=== PATIENT | female | born 1950 | race Caucasian/White ===

== ENCOUNTER → 2019-01-19 | Outpatient (CLI) | payer MEDICARE ==
[~2019-01-19] MED LIST: REGADENOSON 0.4 MG/5 ML SYRINGE IV ONE
--- NOTE | 2019-01-19 11:50 | NM ---
EXAMINATION TYPE: NM stress lexiscan cardiolite DATE OF EXAM: 01/19/2019 COMPARISON: NONE HISTORY: Right bundle branch block per order. History of hypertension and asthma and family history o f heart attack presents with chest pain and palpitations and difficulty breathing per patient. TECHNIQUE: After the intravenous administration of 10.23 mCi Tc 99m Sestamibi - Cardiolite resting S PECT images acquired 45 minutes post injection. The patient received 0.4mg Lexiscan, 24.4 mCi Tc 99m Sestamibi - Stress images obtained [address] injection FINDINGS: Review of stress and rest SPECT images demonstrates no distinct perfusion abnormality. Gated analysi s shows normal wall motion with an estimated left ventricular ejection fraction of 63 %. IMPRESSION: No scintigraphic evidence for reversible ischemia.
--- NOTE | 2019-01-19 13:34 | EST ---
EXERCISE STRESS DATE OF SERVICE: 01/19/2019 AGE: 68 SEX: Female HT: 5'4" WT: 130 pounds PROTOCOL: Lexiscan Cardiolite STAGE: DURATION OF EXERCISE: HEART RATE REST: 60 BLOOD PRESSURE REST: 135/84 MAXIMUM HEART RATE ACHIEVED: 100 MAXIMUM BLOOD PRESSURE: 174/87 85% MPHR: 129 100% MPHR: 152 METS: INDICATIONS: CLINICAL INFORMATION: Baseline rhythm is a sinus mechanism, rate of 60, right bundle branch block. Baseline blood pressure 135/84 mmHg. Patient received injection of Lexiscan. Electrocardiograph monitoring revealed no evidence of diagnostic ischemic ST deviation. Cardiolite was injected per protocol. CONCLUSION: 1. Nondiagnostic electrocardiograph stress testing. 2. Nuclear images will be reported separately. MMODL / IJN: [id number] /
== END | disposition home or self-care (01) ==
LOC: RADNMMAIN 08:00
PROVIDERS: ATTEND Family Medicine
DX: I45.19 Other right bundle-branch block (principal)
CPT/HCPCS: 93017; 78452; A9500

== ENCOUNTER → 2019-03-25 | Outpatient (CLI) | payer MEDICARE ==
--- NOTE | 2019-03-25 11:01 | CT ---
EXAMINATION TYPE: CT abdomen pelvis wo con DATE OF EXAM: 03/25/2019 COMPARISON: None HISTORY: Abdominal pelvic pain CT DLP: 593 mGycm Automated exposure control for dose reduction was used. TECHNIQUE: Helical acquisition of images was performed from the lung bases through the pelvis. Oral contrast was used only. Therefore there is limitation in evaluation of the solid viscera. FINDINGS: LUNG BASES: No significant abnormality is appreciated. LIVER/GB: Unremarkable unenhanced morphology. No radiopaque calculi in the gallbladder. No intrahepat ic biliary ductal dilatation. PANCREAS: No significant abnormality is seen. No ductal dilatation. SPLEEN: No significant abnormality is seen. No splenomegaly. ADRENALS: No significant abnormality is seen. No nodularity or thickening. KIDNEYS: There is a 2 mm nonobstructing right lower pole renal calculus. No left-sided renal calculi. No hydronephrosis of either kidney. FREE AIR: No free air is visualized URINARY BLADDER: No significant abnormality is seen. ADENOPATHY: No greater than 1 cm short axis lymph node in the abdomen or pelvis. OSSEOUS STRUCTURES: Multilevel intervertebral disc space nearing of the thoracolumbar spine. Overall mild multilevel degenerative change of the spine. BOWEL: There is a small hiatal hernia seen. Is no dilated large or small bowel. Mild degree colonic fecal stasis. Appendix is contrast-filled and within normal limits. OTHER: Moderate calcific atheromatous changes of the abdominal aorta and its branches. IMPRESSION: 1. 2 MM NONOBSTRUCTING RIGHT LOWER POLE RENAL CALCULUS. 2. SMALL HIATAL HERNIA.
== END | disposition home or self-care (01) ==
LOC: RADCTMAIN 06:47
PROVIDERS: ATTEND Family Medicine
DX: N20.0 Calculus of kidney (principal); K44.9 Diaphragmatic hernia without obstruction or gangrene; K59.00 Constipation, unspecified
CPT/HCPCS: 74176

== ENCOUNTER → 2019-04-06 | Outpatient (CLI) | payer MEDICARE ==
--- NOTE | 2019-04-06 21:21 | US ---
EXAMINATION TYPE: US carotid duplex BILAT DATE OF EXAM: 04/06/2019 COMPARISON: NONE CLINICAL HISTORY: R09.89 carotid bruit. EXAM MEASUREMENTS: RIGHT: Peak Systolic Velocity (PSV) cm/sec ----- Right CCA: 86.6 ----- Right ICA: 105.9 ----- Right ECA: 115.2 ICA/CCA ratio: 1.2 RIGHT: End Diastole cm/sec ----- Right CCA: 21.2 ----- Right ICA: 33.3 ----- Right ECA: 27.0 LEFT: Peak Systolic Velocity (PSV) cm/sec ----- Left CCA: 109.5 ----- Left ICA: 115.5 ----- Left ECA: 121.4 ICA/CCA ratio: 1.1 LEFT: End Diastole cm/sec ----- Left CCA: 36.6 ----- Left ICA: 34.7 ----- Left ECA: 30.7 VERTEBRALS (direction of flow): Right Vertebral: Antegrade Left Vertebral: Antegrade Rhythm: Normal Grayscale images show no significant focal plaque at carotid bulb level bilaterally. Velocity measure ments and ratios remain within normal limits. IMPRESSION: No hemodynamically significant stenosis is seen in either internal carotid artery. Criteria for Assigning % of Stenosis / Diameter reduction (Estimation based on the indirect measurements of the internal carotid artery velocities (ICA PSV). 1. Normal (no stenosis)=ICA PSV < 125 cm/s: ratio < 2.0: ICA EDV<40 cm/s. 2. Less than 50% stenosis=ICA PSV < 125 cm/s: ratio < 2.0: ICA EDV<40 cm/s. 3. 50 to 69% stenosis=ICA PSV of 125 to 230 cm/s: ration 2.0 ? 4.0: ICA EDV 40-100 cm/s. 4. Greater than 70% stenosis to near occlusion= ICA PSV > 230 cm/s: ratio > 4.0: ICA EDV > 100 cm/s. 5. Near occlusion= ICA PSV velocities may be low or undetectable: variable ratio and ICA EDV. 6. Total occlusion=unable to detect flow.
== END | disposition home or self-care (01) ==
LOC: RADUSWWP 14:48
PROVIDERS: ATTEND Family Medicine
DX: R09.89 Other specified symptoms and signs involving the circulatory and respiratory systems (principal)
CPT/HCPCS: 93880

== ENCOUNTER → 2019-04-16 | Outpatient (CLI) | payer MEDICARE ==
--- NOTE | 2019-04-18 08:55 | NM ---
EXAMINATION TYPE: NM hepatobiliary w EF DATE OF EXAM: 04/16/2019 COMPARISON: NONE HISTORY: R10.13 Epigastric pain TECHNIQUE: After the intravenous administration of 5.1 mCi Tc 99m Mebrofenin hepatobiliary scintigrap hy is performed. Immediate images post injection. FINDINGS: There is satisfactory initial accumulation of tracer by the liver. The gallbladder is visualized wit hin 12 minutes. The small bowel activity is noted within 26 minutes. At one hour 8 ounces of oral e nsure plus is given to mimic CCK and gallbladder ejection fraction is calculated at 80 %, in the norm al range. Therefore there is no scintigraphic evidence of cystic or common bile duct obstruction to suggest acute cholecystitis or gallbladder dyskinesia. IMPRESSION: Exam is within normal limits.
== END | disposition home or self-care (01) ==
LOC: RADNMMAIN 08:24
PROVIDERS: ATTEND Family Medicine
DX: R10.13 Epigastric pain (principal)
CPT/HCPCS: 78226; A9537

== ENCOUNTER → 2019-04-20 | Outpatient (CLI) | payer MEDICARE ==
--- NOTE | 2019-04-20 16:16 | FL ---
EXAMINATION TYPE: FL UGI air w small bowel DATE OF EXAM: 04/20/2019 COMPARISON: None HISTORY: Epigastric pain, abdominal pain TECHNIQUE: Upper gastrointestinal tract is evaluated utilizing double air contrast technique. Small b owel is performed following the oral administration of 4 ounces of thin barium. Fluoroscopy time: 2 minutes 42 seconds. Images: 37 FINDINGS: Upper GI: Esophagus dilates to normal caliber has normal contour to the gastroesophageal junction. Ga stroesophageal junction opens to normal caliber. Tertiary contractions were evident in the horizontal drinking position. Reflux into the distal esophagus was evident. Small self reducing sliding type hi atal hernia is present. There is incomplete stripping of the esophageal bolus in the horizontal drinking position. Reflux and vomiting from the crystals occurred during the exam. Fundus and body the stomach is normal. There may be a defect within the antrum of the stomach. Gastri c folds appear prominent. Ulceration is suspected consider direct visualization. Barium readily empties into the normally positioned duodenal cap and sweep. Duodenal folds are normal . Small bowel follow-through: There is rapid transit through the small bowel to the colon in 30 minutes . Fluoroscopic spot imaging performed over the terminal ileum appears normal. Small bowel loops appea r freely mobile. IMPRESSION: 1. There may be an ulceration within the antrum of the stomach. Direct visualization recommended. 2. A normal duodenum. 3. Transit time to the colon through the normal-appearing small bowel loops is 30 minutes. 4. Small hiatal hernia with reflux into the mid to distal esophagus. 5. Presbyesophagus
== END | disposition home or self-care (01) ==
LOC: RADFLMAIN 09:03
PROVIDERS: ATTEND Family Medicine
DX: K44.9 Diaphragmatic hernia without obstruction or gangrene (principal); K21.9 Gastro-esophageal reflux disease without esophagitis; K22.8 Other specified diseases of esophagus
CPT/HCPCS: 74249

== ENCOUNTER → 2019-05-02 | Outpatient (CLI) | payer MEDICARE ==
--- NOTE | 2019-05-05 10:51 | MM ---
Reason for exam: screening (asymptomatic). Last mammogram was performed 1 year and 4 months ago. History: Patient history of other cancer and had first child at age 36. Family history of breast cancer in paternal aunt. Benign excisional biopsy of the left breast, 2009. Physical Findings: A clinical breast exam by your physician is recommended on an annual basis and results should be correlated with mammographic findings. MG 3D Screening Mammo W/Cad Bilateral CC and MLO view(s) were taken. Prior study comparison: December 28, 2017, mammogram. December 25, 2016, mammogram. December 24, 2015, mammogram. The breast tissue is heterogeneously dense. This may lower the sensitivity of mammography. Finding #1: Architectural distortion in the upper outer quadrant of the left breast consistent with known excision biopsy changes. Finding #2: There are typically benign round calcifications in both breasts. There is no discrete abnormality. ASSESSMENT: Benign, BI-RAD 2 RECOMMENDATION: Routine screening mammogram of both breasts in 1 year.
== END | disposition home or self-care (01) ==
LOC: RADMAMWWP 11:05
PROVIDERS: ATTEND Family Medicine
DX: Z12.31 Encounter for screening mammogram for malignant neoplasm of breast (principal); Z80.3 Family history of malignant neoplasm of breast
CPT/HCPCS: 77063; 77067

== ENCOUNTER → 2020-06-13 | Outpatient (CLI) | payer MEDICARE ==
--- NOTE | 2020-06-15 11:29 | MM ---
Reason for exam: screening (asymptomatic). Last mammogram was performed 1 year and 1 month ago. History: Patient is postmenopausal, history of other cancer, and had first child at age 36. Family history of breast cancer in paternal aunt. Benign excisional biopsy of the left breast, 2009. Physical Findings: A clinical breast exam by your physician is recommended on an annual basis and results should be correlated with mammographic findings. MG 3D Screening Mammo W/Cad Bilateral CC and MLO view(s) were taken. Prior study comparison: May 02, 2019, bilateral MG 3d screening mammo w/cad. December 28, 2017, mammogram. The breast tissue is heterogeneously dense. This may lower the sensitivity of mammography. No significant changes when compared with prior studies. ASSESSMENT: Benign, BI-RAD 2 RECOMMENDATION: Routine screening mammogram of both breasts in 1 year.
== END | disposition home or self-care (01) ==
LOC: RADMAMWWP 14:07
PROVIDERS: ATTEND Family Medicine
DX: Z12.31 Encounter for screening mammogram for malignant neoplasm of breast (principal)
CPT/HCPCS: 77063; 77067

== ENCOUNTER → 2020-08-24 | Outpatient (CLI) | payer MEDICARE | END | disposition home or self-care (01) | LOC: LABWHC1 14:10 | PROVIDERS: ATTEND Family Medicine | DX: Z20.822 Contact with and (suspected) exposure to COVID-19 (principal); J02.9 Acute pharyngitis, unspecified; R05 Cough | CPT/HCPCS: U0003; C9803; U0005 ==

== ENCOUNTER → 2020-08-28 | Outpatient (CLI) | payer MEDICARE ==
[2020-08-29 12:42] LABS: Alt. alternata IgE Class CLASS 0; Alternaria alternata IgE <0.10 kU/L (<0.10); Asperg. fumagatus IgE <0.10 kU/L (<0.10); Asperg. fumagatus IgE Class CLASS 0; Aureo. pullulans IgE <0.10 kU/L (<0.10); Aureo. pullulans IgE Class CLASS 0; Birch(Com.Silvr) IgE <0.10 kU/L (<0.10); Birch(Com.Silvr) IgE Class CLASS 0; Candida albicans IgE Class CLASS 0; Clad herbarum IgE <0.10 kU/L (<0.10); Clad herbarum IgE Class CLASS 0; Cottonwood IgE <0.10 kU/L (<0.10); Epicoccum purpurascens Class CLASS 0; Epicoccum purpurascens IgE <0.10 kU/L (<0.10); Maple (Box Elder) IgE <0.10 kU/L (<0.10); Maple (Box Elder) IgE Class CLASS 0; Mucor racemosus IgE <0.10 kU/L (<0.10); Mucor racemosus IgE Class CLASS 0; Oak IgE <0.10 kU/L (<0.10); Rhizopus nigricans IgE <0.10 kU/L (<0.10); Rhizopus nigricans IgE Class CLASS 0; S.rostrata/Helminth Class CLASS 0; S.rostrata/Helminth IgE <0.10 kU/L (<0.10); Sycamore(Mpl.Lf) IgE <0.10 kU/L (<0.10); Sycamore(Mpl.Lf) IgE Class CLASS 0; Walnut Tree IgE <0.10 kU/L (<0.10); Walnut Tree IgE Class CLASS 0; White Ash IgE Class CLASS 0
[2020-08-29 12:43] LABS: Cat Epith & Dander IgE <0.10 kU/L (<0.10); Cat Epith & Dander IgE Class CLASS 0; Cockroach IgE <0.10 kU/L (<0.10); Com. Pigweed IgE <0.10 kU/L (<0.10); Com. Pigweed IgE Class CLASS 0; Dermato. Pteronyssinus Class CLASS 0; Dermato. Pteronyssinus IgE <0.10 kU/L (<0.10); Dermato. farinae IgE <0.10 kU/L (<0.10); Dermato. farinae IgE Class CLASS 0; Dog Dander IgE <0.10 kU/L (<0.10); English Plantain IgE Class CLASS 0; Johnson Grass IgE Class CLASS 0; Lamb's Quarter IgE <0.10 kU/L (<0.10); Lamb's Quarter IgE Class CLASS 0; Timothy Grass IgE <0.10 kU/L (<0.10); Timothy Grass IgE Class CLASS 0
== END | disposition home or self-care (01) ==
LOC: LABWHC1 15:09
PROVIDERS: ATTEND Otolaryngology
DX: L50.0 Allergic urticaria (principal); J30.89 Other allergic rhinitis; B44.89 Other forms of aspergillosis
CPT/HCPCS: 36415; 86003

== ENCOUNTER → 2020-11-22 | Outpatient (CLI) | payer MEDICARE ==
[2020-11-22 15:12] LABS: LDH 442 U/L (313-618)
[2020-11-22 15:24] LABS: Creatine Kinase MB 0.3 ng/mL (0.0-2.4); Troponin I <0.012 ng/mL (0.000-0.034)
[2020-11-22 17:17] LABS: T4, Free (Free Thyroxine) 1.08 ng/dL (0.78-2.19)
--- NOTE | 2020-11-22 17:38 | ECHOF ---
Referral Reason:Abnormal EKG MEASUREMENTS -------- HEIGHT: 162.6 cm WEIGHT: 59.0 kg BP: RVIDd: 1.8 cm (< 3.3) IVSd: 1.2 cm (0.6 - 1.1) LVIDd: 2.8 cm (3.9 - 5.3) LVPWd: 1.6 cm (0.6 - 1.1) IVSs: 1.8 cm LVIDs: 2.1 cm LVPWs: 1.9 cm Ao Diam: 3.1 cm (2.0 - 3.7) AV Cusp: 2.0 cm (1.5 - 2.6) LA Diam: 2.3 cm (2.7 - 3.8) MV EXCURSION: 14.230 mm (> 18.000) MV EF SLOPE: 159 mm/s (70 - 150) EPSS: 0.5 cm MV E Denny: 0.61 m/s MV DecT: 208 ms MV A Denny: 0.84 m/s MV E/A Ratio: 0.73 RAP: 5.00 mmHg RVSP: 15.17 mmHg FINDINGS -------- This was a technically good study. The left ventricular size is normal. There is mild concentric left ventricular hypertrophy. Overa ll left ventricular systolic function is normal with, an EF between 55 - 60 %. The right ventricle is normal in size. The left atrial size is normal. The right atrial size is normal. The aortic valve is trileaflet and appears structurally normal. The mitral valve is normal. There is trace mitral regurgitation. The tricuspid valve appears structurally normal. Trace tricuspid regurgitation present. Right roosevelt tricular systolic pressure is normal at < 35 mmHg. There is no pulmonic regurgitation present. The aortic root size is normal. Normal inferior vena cava with normal inspiratory collapse consistent with estimated right atrial pre ssure of 5 mmHg. There is no pericardial effusion. CONCLUSIONS -------- 1. The left ventricular size is normal. 2. There is mild concentric left ventricular hypertrophy. 3. Overall left ventricular systolic function is normal with, an EF between 55 - 60 %. 4. There is trace mitral regurgitation. 5. Trace tricuspid regurgitation present. 6. There is no pericardial effusion. HYDRAULIC PRESS TENDER: Nicolette Gleason RDCS
[2020-11-23 01:51] LABS: Anti-Smith Ab Interp NEGATIVE (NEGATIVE); DNA Double-Stranded NEGATIVE (NEGATIVE)
[2020-11-23 06:05] LABS: EBV - VCA IgM <10.0 U/mL (<36.0)
[2020-11-23 13:54] LABS: Rheumatoid Factor, Qnt 8 IU/mL (0-15)
== END | disposition home or self-care (01) ==
LOC: RADECHMAIN 13:57
PROVIDERS: ATTEND Family Medicine
DX: I51.7 Cardiomegaly (principal); E78.5 Hyperlipidemia, unspecified; K62.5 Hemorrhage of anus and rectum; R10.9 Unspecified abdominal pain; R00.2 Palpitations; R53.83 Other fatigue; R30.0 Dysuria; R21 Rash and other nonspecific skin eruption; R94.31 Abnormal electrocardiogram [ECG] [EKG]
CPT/HCPCS: 36415; 82553; 83615; 83655; 83825; 84439; 84443; 84484; 86038; 86225; 86235; 86431; 86480; 86618; 86665; 86780; 87086; 93306

== ENCOUNTER → 2021-02-08 | Outpatient (CLI) | payer MEDICARE ==
--- NOTE | 2021-02-08 16:26 | XR ---
EXAMINATION TYPE: XR chest 2V DATE OF EXAM: 02/08/2021 COMPARISON: NONE HISTORY: Shortness of breath and anemia. TECHNIQUE: Frontal and lateral views of the chest are obtained. FINDINGS: There is no focal air space opacity, pleural effusion, or pneumothorax seen. The cardiac silhouette size is mildly enlarged. Surgical change to the left humeral head is present. IMPRESSION: Mild cardiomegaly without acute pulmonary process.
== END | disposition home or self-care (01) ==
LOC: RADXRMAIN 13:08
PROVIDERS: ATTEND Family Medicine
DX: D64.9 Anemia, unspecified (principal); I51.7 Cardiomegaly
CPT/HCPCS: 71046

== ENCOUNTER → 2021-03-08 | Outpatient (CLI) | payer MEDICARE | END | disposition home or self-care (01) | LOC: LABWHC1 16:17 | PROVIDERS: ATTEND Otolaryngology | DX: T78.3XXA Angioneurotic edema, initial encounter (principal); R21 Rash and other nonspecific skin eruption; D47.02 Systemic mastocytosis | CPT/HCPCS: 36415; 83520; 86160; 86161; 86255; 86618 ==

== ENCOUNTER → 2021-04-04 | Outpatient (CLI) | payer MEDICARE ==
--- NOTE | 2021-04-05 10:42 | BD ---
EXAMINATION TYPE: Axial Bone Density DATE OF EXAM: 04/04/2021 COMPARISON: NONE CLINICAL HISTORY: Postmenopausal female. Disorder of bone. Height: 62.5 IN Weight: 141 LBS FRAX RISK QUESTIONS: Secondary Osteoporosis: 3. Menopause before 45: PARTIAL HYST AGE 41 4. Malnutrition: YES CACHEXIA 5 YEARS AGO RISK FACTORS HISTORY OF: Family History of Osteoporosis: YES MOTHER Active: MODERATE Diet low in dairy products/other sources of calcium: Postmenopausal woman: PARTIAL HYST AGE 41 Frequent falls: YES BALANCE ISSUES MEDICATIONS: Osteoporosis Medications: NOT NOW Which medication: Actonel How Lon YEARS Additional Medications: VIT D2, HYDROXYZINE, MONOLUCAST, ZYRTEC,FLAX SEED OIL, OMEGA, DGL, EXAM MEASUREMENTS: Bone mineral densitometry was performed using the [employer] System. Bone mineral density as measured about the Lumbar spine is: ----- L1-L4(G/cm2): 1.028 T Score Values are as follows: ----- L2: -0.5 ----- L3: -1.5 ----- L4: -1.8 ----- L1-L4: -1.3 Bone mineral density BASELINE Bone mineral density about the R hip (g/cm2): 0.682 Bone mineral density about the L hip (g/cm2): 0.709 T Score values are as follows: -----R Neck: -2.6 -----L Neck: -2.4 -----R Total: -2.4 -----L Total: -2.2 Bone mineral density BASELINE IMPRESSION: Osteoporosis (T Score less than -2.5) femoral neck level right hip. There is increased fracture risk and therapy is usually indicated based on age. Re-Screen 1-2 years. NOTE: T-SCORE=SD OF THE YOUNG ADULT MEAN.
== END | disposition home or self-care (01) ==
LOC: RADBDWWP 15:46
PROVIDERS: ATTEND Family Medicine
DX: M81.0 Age-related osteoporosis without current pathological fracture (principal); Z78.0 Asymptomatic menopausal state; Z82.62 Family history of osteoporosis
CPT/HCPCS: 77080

== ENCOUNTER → 2021-11-29 | Outpatient (CLI) | payer MEDICARE ==
--- NOTE | 2021-11-30 03:03 | MR ---
EXAMINATION TYPE: MR brain and iac wo con DATE OF EXAM: 11/29/2021 COMPARISON: None HISTORY: Right asymmetric SNHL, tinnitus, migraines. Multiplanar multiecho imaging of the brain performed without and with the IV contrast gadolinium 7 mL . FINDINGS: Diffusion images show no evidence of an acute infarct. Ventricles are borderline enlarged. There is c erebral cortical atrophy. There is no mass effect nor midline shift. No sign of intracranial hemorrha ge. There is some linear increased signal on the T2 and FLAIR images adjacent to the lateral ventricl es consistent with age-related white matter disease. Brainstem is intact. Cerebellum is intact. No evidence of posterior fossa mass. The internal auditory canals appear normal. The acoustic nerve a nd vestibular nerve appear normal. No cerebellopontine angle mass. Contrast images show no pathologic enhancement. There is mild thinning of the corpus callosum. Sella turcica appears normal. No evidence of orbital m ass. IMPRESSION: Mild atrophy. Age-related mild white matter changes. No evidence of cortical infarcts. No evidence of focal posterior fossa abnormality. I do not see a cause for right-sided hearing loss.
== END | disposition home or self-care (01) ==
LOC: RADMRIMAIN 17:03
PROVIDERS: ATTEND Nurse Practitioner Family
DX: H90.A21 Sensorineural hearing loss, unilateral, right ear, with restricted hearing on the contralateral side (principal); G31.9 Degenerative disease of nervous system, unspecified; I67.82 Cerebral ischemia
CPT/HCPCS: 70551

== ENCOUNTER → 2021-12-20 | Outpatient (CLI) | payer MEDICARE ==
[2021-12-20 23:22] LABS: Basophils # (A) 0.08 X 10*3/uL (0.00-0.10); Basophils % (A) 1.2 %; Eosinophils # (A) 0.28 X 10*3/uL (0.04-0.35); Eosinophils % (A) 4.3 %; HCT 45.9 % (37.2-46.3); HGB 15.1 g/dL (12.0-15.0); Immature Grans, Automated 0.3 %; Lymphocytes # (A) 1.46 X 10*3/uL (0.90-5.00); Lymphocytes % (A) 22.5 %; MCH 31.3 pg (27.0-32.0); MCHC 32.9 g/dL (32.0-37.0); Mean Platelet Volume 10.4 fL (9.5-12.2); Monocytes # (A) 0.44 X 10*3/uL (0.20-1.00); Monocytes % (A) 6.8 %; NRBC Per 100 WBC 0 /100 WBCS (0.0-0.0); Neutrophils # (A) 4.22 X 10*3/uL (1.80-7.70); Neutrophils % (A) 64.9 %; Platelet Count 278 X 10*3/uL (140-440); RBC 4.83 X 10*6/uL (4.10-5.20); RDW 12.9 % (11.5-14.5)
[2021-12-20 23:36] LABS: % Iron Saturation 30.45 (12.00-45.00)
== END | disposition home or self-care (01) ==
LOC: LABWHC1 14:18
PROVIDERS: ATTEND Internal Medicine Hematology & Oncology
DX: I10 Essential (primary) hypertension (principal); D50.9 Iron deficiency anemia, unspecified; J45.909 Unspecified asthma, uncomplicated; R31.9 Hematuria, unspecified
CPT/HCPCS: 36415; 82728; 83540; 83550; 85025

== ENCOUNTER → 2021-12-21 | Outpatient (CLI) | payer MEDICARE ==
[2021-12-21 16:33] LABS: Basophils # (A) 0.07 X 10*3/uL (0.00-0.10); Basophils % (A) 1.3 %; Eosinophils # (A) 0.26 X 10*3/uL (0.04-0.35); Eosinophils % (A) 4.7 %; HCT 47.2 % (37.2-46.3); HGB 15.6 g/dL (12.0-15.0); Immature Grans, Automated 0.2 %; Lymphocytes # (A) 1.21 X 10*3/uL (0.90-5.00); MCHC 33.1 g/dL (32.0-37.0); MCV 93.7 fL (80.0-97.0); Mean Platelet Volume 9.5 fL (9.5-12.2); Monocytes # (A) 0.41 X 10*3/uL (0.20-1.00); Monocytes % (A) 7.5 %; NRBC Per 100 WBC 0 /100 WBCS (0.0-0.0); Neutrophils # (A) 3.53 X 10*3/uL (1.80-7.70); Neutrophils % (A) 64.3 %; Platelet Count 279 X 10*3/uL (140-440); RBC 5.04 X 10*6/uL (4.10-5.20); RDW 12.9 % (11.5-14.5); WBC 5.49 X 10*3/uL (4.50-10.00)
[2021-12-21 16:52] LABS: ALT 19 U/L (8-44); AST 22 U/L (13-35); Albumin 4.3 g/dL (3.8-4.9); Albumin/Globulin Ratio 1.59 (1.60-3.17); Alkaline Phosphatase 99 U/L (41-126); BUN/Creat Ratio 21.75 Ratio (12.00-20.00); Blood Urea Nitrogen 17.4 mg/dL (9.0-27.0); Calcium 9.7 mg/dL (8.7-10.3); Carbon Dioxide 20.4 mmol/L (20.0-27.5); Chloride 102 mmol/L (96-109); Creatine Kinase 56 U/L (26-186); Globulin 2.7 g/dL (1.6-3.3); Glucose 88 mg/dL (70-110); Non-African American GFR(CKD) 74.2 (60.0-200.0); Potassium 3.9 mmol/L (3.5-5.5); Sodium 136 mmol/L (135-145)
[2021-12-21 16:53] LABS: % Iron Saturation 27.22 (12.00-45.00); Chol/HDL Ratio 3.28 Ratio; Iron 82 ug/dL (50-170); LDL Cholesterol,Calculated 176.4 mg/dL (0.0-131.0); Total Iron Binding Capacity 302 ug/dL (228-460); VLDL Calculation 12.64 mg/dL (5.00-40.00)
== END | disposition home or self-care (01) ==
LOC: LABWHC1 10:12
PROVIDERS: ATTEND Family Medicine
DX: E78.2 Mixed hyperlipidemia (principal); E55.9 Vitamin D deficiency, unspecified; D50.9 Iron deficiency anemia, unspecified
CPT/HCPCS: 36415; 80053; 80061; 82306; 82550; 82607; 82728; 82746; 83540; 83550; 85025

== ENCOUNTER 2022-04-07 13:45 | Emergency (ER) | payer MEDICARE ==
[2022-04-07 16:05] LABS: Amorphous Sediment,Urine Rare /hpf; Appearance,Urine Clear (Clear); Bilirubin,Urine Negative (Negative); Blood,Urine Small (Negative); Color,Urine Yellow; Glucose,Urine (UA) Negative (Negative); Ketones,Urine Negative (Negative); Leukocyte Esterase,Urine Negative (Negative); Mucus,Urine Rare /hpf; Nitrite,Urine Negative (Negative); PH, Urine 6.5 (5.0-8.0); Protein,Urine Trace (Negative); RBC,Urine 7 /hpf (0-5); Specific Gravity,Urine 1.017 (1.001-1.035); Squamous Epithelial Cell,Urine 1 /hpf (0-4); Urobilinogen,Urine <2.0 mg/dL (<2.0); WBC,Urine 2 /hpf (0-5)
--- NOTE | 2022-04-07 16:07 | XR ---
EXAMINATION TYPE: XR KUB DATE OF EXAM: 04/07/2022 3:54 PM INDICATION: Patient age:Female; 71 years old; Reason for study: abdominal pain; COMPARISON: 04/20/2019. TECHNIQUE: One radiographic view of the abdomen was obtained. FINDINGS: The bowel gas pattern is nonspecific without dilated loops of small or large bowel. There i s no evidence for organomegaly or pneumoperitoneum. The osseous structures are intact. No abnormal calcifications are present. Fecal material and gas are demonstrated throughout the colon and rectum. IMPRESSION: Nonspecific bowel gas pattern without radiographic evidence for acute process.
[2022-04-07 16:20] LABS: ALT 24 U/L (4-34); AST 28 U/L (14-36); African American GFR (CKD) >90 (>60 ml/min/1.73 sqM); Albumin 4.6 g/dL (3.5-5.0); Alkaline Phosphatase 108 U/L (38-126); Amylase 45 U/L (30-110); Anion Gap 7 mmol/L; Blood Urea Nitrogen 11 mg/dL (7-17); Calcium 9.3 mg/dL (8.4-10.2); Carbon Dioxide 24 mmol/L (22-30); Chloride 107 mmol/L (98-107); Glucose 104 mg/dL (74-99); Lipase 141 U/L (23-300); Non-African American GFR(CKD) >90 (>60 ml/min/1.73 sqM); Potassium 3.6 mmol/L (3.5-5.1); Sodium 138 mmol/L (137-145); Total Bilirubin 0.5 mg/dL (0.2-1.3); Total Protein 7.6 g/dL (6.3-8.2)
[2022-04-07 16:24] LABS: Basophils # (A) 0.1 k/uL (0-0.2); Basophils % (A) 1 %; Eosinophils % (A) 1 %; HCT 48.4 % (34.0-46.0); Lymphocytes # (A) 1.4 k/uL (1.0-4.8); Lymphocytes % (A) 27 %; MCH 32.1 pg (25.0-35.0); MCV 97.4 fL (80.0-100.0); Mean Platelet Volume 8.3; Monocytes # (A) 0.4 k/uL (0-1.0); Monocytes % (A) 7 %; Neutrophils # (A) 3.2 k/uL (1.3-7.7); Neutrophils % (A) 61 %; Platelet Count 266 k/uL (150-450); RBC 4.97 m/uL (3.80-5.40); RDW 12.7 % (11.5-15.5); WBC 5.2 k/uL (3.8-10.6)
[2022-04-07] MEDS ORDERED: ONDANSETRON 4 MG/2 ML VIAL IVP STA (17:56)
[2022-04-07] MEDS ORDERED: SODIUM CHLORIDE 0.9% 1,000 ML IV STA (17:57)
[2022-04-07] MEDS ORDERED: ALBUTEROL NEBULIZED 2.5 MG/3 ML INHALATION STA (17:57)
[2022-04-07] MEDS ORDERED: ACETAMINOPHEN TAB 500 MG TAB PO STA (18:01)
--- NOTE | 2022-04-07 18:49 | XR ---
EXAMINATION TYPE: XR chest 2V DATE OF EXAM: 04/07/2022 COMPARISON: NONE HISTORY: Short of breath. Cough. TECHNIQUE: FINDINGS: There is no heart failure nor confluent pneumonic infiltrate. Heart size is normal. There i s a shoulder prosthesis. Costophrenic angles are clear. Bony thorax is intact. IMPRESSION: No active cardiopulmonary disease. Normal heart. No change.
--- NOTE | 2022-04-07 19:10 | ED ---
Abdominal Pain HPI - General Source: patient Mode of arrival: ambulatory Limitations: no limitations - History of Present Illness MD Complaint: abdominal pain <Dulce Ferraro - Last Filed: 04/07/22 19:10> <Uday Browne - Last Filed: 04/07/22 20:15> - General Chief Complaint: Abdominal Pain Stated Complaint: abd pain Time Seen by Provider: 04/07/22 17:42 - History of Present Illness Initial Comments: Patient is a 71-year-old female who presents to the emergency department with multiple complaints. Her main complaint is intermittent abdominal pain for the past 5 days. In the right upper abdomen without radiation. She describes it as sharp and worse with food. Pain started after eating falafel. Patient also reports nausea with a few episodes of vomiting. She denies fever, chills, constipation. Does admit to diarrhea which patient states is chronic for her. Denies blood in stool. Denies history of gallbladder disease. Patient also reports cough and congestion for 2 weeks. She denies shortness of breath and chest pain. Denies history of COPD. Denies passing present tobacco use. (Dulce Ferraro) - Related Data Home Medications Medication Instructions Recorded Confirmed Ashwagandha Root Extract PO DAILY 05/21/20 Cyanocobalamin (Vitamin B-12) DAILY 05/21/20 [Vitamin B-12] Fluticasone Furoate [Flonase 05/21/20 Sensimist] Loratadine 10 mg PO BID 05/21/20 05/21/20 Montelukast [Singulair] 05/21/20 Valsartan [Diovan] 80 mg PO DAILY 05/21/20 05/21/20 hydrOXYzine HCL 50 mg PO BID 05/21/20 05/21/20 tiZANidine [Zanaflex] 8 mg PO DAILY 05/21/20 05/21/20 Previous Rx's Medication Instructions Recorded Azithromycin [Zithromax Z Pack] 1 tab PO DIRECTED #6 tab 04/07/22 Allergies Allergy/AdvReac Type Severity Reaction Status Date / Time mirabegron [From Myrbetriq] Allergy Anaphylaxis Verified 04/07/22 14:26 nickel Allergy Anaphylaxis Verified 05/25/20 10:05 rizatriptan [From Maxalt] Allergy Dyspnea Verified 05/25/20 10:05 adhesive tape AdvReac Rash/Hives Verified 05/25/20 10:05 cephalexin AdvReac Rash/Hives Verified 05/25/20 10:05 codeine AdvReac Rash/Hives Verified 05/25/20 10:05 lanolin AdvReac Anaphylaxis Verified 05/25/20 10:05 prednisone AdvReac Rash/Hives Verified 05/25/20 10:05 propanalol Allergy Anaphylaxis Uncoded 04/07/22 14:25 tape Allergy Rash/Hives Uncoded 04/07/22 14:26 Review of Systems ROS Other: All systems not noted in ROS Statement are negative. <Dulce Ferraro - Last Filed: 04/07/22 19:10> ROS Other: All systems not noted in ROS Statement are negative. <Uday Browne - Last Filed: 04/07/22 20:15> ROS Statement: Those systems with pertinent positive or pertinent negative responses have been documented in the HPI. Past Medical History Past Medical History: Asthma, GERD/Reflux, Osteoarthritis (OA), Skin Disorder Additional Past Medical History / Comment(s): MILD HEARING LOSS,PTSD chronic back pain History of Any Multi-Drug Resistant Organisms: None Reported Past Surgical History: Breast Surgery, Hysterectomy, Orthopedic Surgery Additional Past Surgical History / Comment(s): SKIN CANCER Past Anesthesia/Blood Transfusion Reactions: Previous Problems w/ Anesthesia Past Psychological History: Anxiety, Depression, PTSD Smoking Status: Never smoker <JasmineDulce - Last Filed: 04/07/22 19:10> General Exam Limitations: no limitations General appearance: alert, in no apparent distress Head exam: Present: atraumatic, normocephalic, normal inspection Respiratory exam: Present: wheezes. Absent: normal lung sounds bilaterally, respiratory distress, rales, rhonchi, stridor Cardiovascular Exam: Present: regular rate, normal rhythm, normal heart sounds. Absent: systolic murmur, diastolic murmur, rubs, gallop, clicks GI/Abdominal exam: Present: soft, tenderness (RUQ. pos niño), normal bowel sounds. Absent: distended, guarding, rebound, rigid Neurological exam: Present: alert, oriented X3, CN II-XII intact Psychiatric exam: Present: normal affect, normal mood Skin exam: Present: warm, dry, intact, normal color. Absent: rash <Dulce Ferraro - Last Filed: 04/07/22 19:10> Course Vital Signs 04/07/22 04/07/22 04/07/22 14:17 18:42 20:02 Temperature 98.7 F 97.8 F Pulse Rate 80 96 77 Respiratory 16 18 18 Rate Blood Pressure 190/94 198/95 179/86 O2 Sat by Pulse 98 99 98 Oximetry Medical Decision Making - Lab Data Result diagrams: 04/07/22 15:45 04/07/22 15:45 <Dulce Ferraro - Last Filed: 04/07/22 19:10> - Lab Data Result diagrams: 04/07/22 15:45 04/07/22 15:45 <Uday Browne - Last Filed: 04/07/22 20:15> - Medical Decision Making This is a 71-year-old female with multiple complaints. Laboratory studies obtained. There is no leukocytosis. Liver enzymes are normal. Bilirubin is normal. Chest x-ray obtained interpreted by me which is negative for acute process. (Dulce Ferraro) Patient was signed out to me by physician grants assistant, Dulce Ferraro. Briefly, patient is a 71-year-old female presents with right upper quadrant abdominal pain patient's had a chronic cough for several weeks. Patient was tested today and was positive for COVID-19. Rest of labs unremarkable. Blood work is negative. Chest x-ray is nonacute. KUB is negative. Abdominal ultrasound shows no findings to suggest gallbladder disease. Patient reevaluated bedside A 15 p.m. Patient is demanding Zithromax pack and steroid shot. She is otherwise well-appearing and is stable for discharge. (Uday Browne) - Lab Data Lab Results 04/07/22 04/07/22 04/07/22 Range/Units 15:41 15:45 15:45 WBC 5.2 (3.8-10.6) k/uL RBC 4.97 (3.80-5.40) m/uL Hgb 16.0 (11.4-16.0) gm/dL Hct 48.4 H (34.0-46.0) % MCV 97.4 (80.0-100.0) fL MCH 32.1 (25.0-35.0) pg MCHC 33.0 (31.0-37.0) g/dL RDW 12.7 (11.5-15.5) % Plt Count 266 (150-450) k/uL MPV 8.3 Neutrophils % 61 % Lymphocytes % 27 % Monocytes % 7 % Eosinophils % 1 % Basophils % 1 % Neutrophils # 3.2 (1.3-7.7) k/uL Lymphocytes # 1.4 (1.0-4.8) k/uL Monocytes # 0.4 (0-1.0) k/uL Eosinophils # 0.0 (0-0.7) k/uL Basophils # 0.1 (0-0.2) k/uL Sodium 138 (137-145) mmol/L Potassium 3.6 (3.5-5.1) mmol/L Chloride 107 (98-107) mmol/L Carbon Dioxide 24 (22-30) mmol/L Anion Gap 7 mmol/L BUN 11 (7-17) mg/dL Creatinine 0.60 (0.52-1.04) mg/dL Est GFR (CKD-EPI)AfAm >90 (>60 ml/min/1.73 sqM) Est GFR (CKD-EPI)NonAf >90 (>60 ml/min/1.73 sqM) Glucose 104 H (74-99) mg/dL Calcium 9.3 (8.4-10.2) mg/dL Total Bilirubin 0.5 (0.2-1.3) mg/dL AST 28 (14-36) U/L ALT 24 (4-34) U/L Alkaline Phosphatase 108 (38-126) U/L Total Protein 7.6 (6.3-8.2) g/dL Albumin 4.6 (3.5-5.0) g/dL Amylase 45 (30-110) U/L Lipase 141 (23-300) U/L Urine Color Yellow Urine Appearance Clear (Clear) Urine pH 6.5 (5.0-8.0) Ur Specific [place] 1.017 (1.001-1.035) Urine Protein Trace H (Negative) Urine Glucose (UA) Negative (Negative) Urine Ketones Negative (Negative) Urine Blood Small H (Negative) Urine Nitrite Negative (Negative) Urine Bilirubin Negative (Negative) Urine Urobilinogen <2.0 (<2.0) mg/dL Ur Leukocyte Esterase Negative (Negative) Urine RBC 7 H (0-5) /hpf Urine WBC 2 (0-5) /hpf Ur Squamous Epith Cells 1 (0-4) /hpf Amorphous Sediment Rare H (None) /hpf Urine Mucus Rare H (None) /hpf Coronavirus (PCR) (Not Detectd) Influenza Type A RNA (Not Detectd) Influenza Type B (PCR) (Not Detectd) 04/07/22 04/07/22 Range/Units 18:42 18:42 WBC (3.8-10.6) k/uL RBC (3.80-5.40) m/uL Hgb (11.4-16.0) gm/dL Hct (34.0-46.0) % MCV (80.0-100.0) fL MCH (25.0-35.0) pg MCHC (31.0-37.0) g/dL RDW (11.5-15.5) % Plt Count (150-450) k/uL MPV Neutrophils % % Lymphocytes % % Monocytes % % Eosinophils % % Basophils % % Neutrophils # (1.3-7.7) k/uL Lymphocytes # (1.0-4.8) k/uL Monocytes # (0-1.0) k/uL Eosinophils # (0-0.7) k/uL Basophils # (0-0.2) k/uL Sodium (137-145) mmol/L Potassium (3.5-5.1) mmol/L Chloride (98-107) mmol/L Carbon Dioxide (22-30) mmol/L Anion Gap mmol/L BUN (7-17) mg/dL Creatinine (0.52-1.04) mg/dL Est GFR (CKD-EPI)AfAm (>60 ml/min/1.73 sqM) Est GFR (CKD-EPI)NonAf (>60 ml/min/1.73 sqM) Glucose (74-99) mg/dL Calcium (8.4-10.2) mg/dL Total Bilirubin (0.2-1.3) mg/dL AST (14-36) U/L ALT (4-34) U/L Alkaline Phosphatase (38-126) U/L Total Protein (6.3-8.2) g/dL Albumin (3.5-5.0) g/dL Amylase (30-110) U/L Lipase (23-300) U/L Urine Color Urine Appearance (Clear) Urine pH (5.0-8.0) Ur Specific [place] (1.001-1.035) Urine Protein (Negative) Urine Glucose (UA) (Negative) Urine Ketones (Negative) Urine Blood (Negative) Urine Nitrite (Negative) Urine Bilirubin (Negative) Urine Urobilinogen (<2.0) mg/dL Ur Leukocyte Esterase (Negative) Urine RBC (0-5) /hpf Urine WBC (0-5) /hpf Ur Squamous Epith Cells (0-4) /hpf Amorphous Sediment (None) /hpf Urine Mucus (None) /hpf Coronavirus (PCR) Detected A (Not Detectd) Influenza Type A RNA Not Detected (Not Detectd) Influenza Type B (PCR) Not Detected (Not Detectd) Disposition <Dulce Ferraro - Last Filed: 04/07/22 19:10> Is patient prescribed a controlled substance at d/c from ED?: No Time of Disposition: 20:15 <Uday Browne - Last Filed: 04/07/22 20:15> Clinical Impression: Cough Disposition: HOME SELF-CARE Condition: Good Instructions (If sedation given, give patient instructions): Coronavirus Disease 2019 (COVID-19) Prescriptions: Azithromycin [Zithromax Z Pack] 1 tab PO DIRECTED #6 tab Referrals: Ever Paez MD [Primary Care Provider] - 1-2 days
[2022-04-07] MEDS ORDERED: methylPREDNISolone SOD SUCCI 125 MG/2 ML VIAL IV STA (19:11)
[2022-04-07] MEDS ORDERED: ALBUTEROL HFA INHALER INHALATION STA (19:36)
--- NOTE | 2022-04-07 20:08 | US ---
EXAMINATION TYPE: US abdomen limited DATE OF EXAM: 04/07/2022 COMPARISON: NONE CLINICAL HISTORY: RUQ pain, vomiting. RUQ pain, vomiting TECHNIQUE: Multiple sonographic images of the right upper quadrant are obtained. FINDINGS: EXAM MEASUREMENTS: Liver Length: 13.7 cm Gallbladder Wall: 0.14 cm CBD: 0.30 cm Right Kidney: 10.2 x 5.1 x 5.1 cm TELEVISION REPAIR TEACHER NOTES: Pancreas: Tail obscured by overlying bowel gas Liver: wnl Gallbladder: wnl No evidence of cholelithiasis, pericholecystic fluid or wall thickening. Evidence for sonographic Mcdaniel's sign: Yes CBD: wnl Right Kidney: wnl IMPRESSION: 1. No evidence for acute abdominal process. 2. Staffing Coordinator reported positive sonographic Mcdaniel's sign in the absence of wall thickening, perich olecystic fluid or gallstones. Clinical correlation advised.
[2022-04-07 21:10] VITALS: BP 175/87; PULSE 72; RESP 20; TEMP 97.4
== END 2022-04-07 21:09 | disposition home or self-care (01) ==
LOC: EC 13:45
DX: U07.1 COVID-19 (principal); J45.909 Unspecified asthma, uncomplicated; M19.90 Unspecified osteoarthritis, unspecified site; F41.9 Anxiety disorder, unspecified; F32.A Depression, unspecified; Z91.048 Other nonmedicinal substance allergy status; Z88.8 Allergy status to other drugs, medicaments and biological substances; Z88.5 Allergy status to narcotic agent; Z79.899 Other long term (current) drug therapy
CPT/HCPCS: 36415; 80053; 82150; 83690; 85025; 81001; 87502; 87635; 71046; 74018; 76705; 99284; 96374; 96375; 96361; J2930; J2405

== ENCOUNTER → 2022-04-18 | Outpatient (CLI) | payer MEDICARE ==
--- NOTE | 2022-04-18 14:57 | XR ---
EXAMINATION TYPE: XR chest 2V DATE OF EXAM: 04/18/2022 COMPARISON: 04/07/2022 INDICATION: Allergic anaphylactic reaction TECHNIQUE: Frontal and lateral views of the chest are obtained. FINDINGS: The heart size is normal. The pulmonary vasculature is normal. The lungs are clear. Left shoulder prosthesis is present. IMPRESSION: 1. No acute pulmonary process.
[2022-04-18 21:39] LABS: Codfish IgE <0.10 kU/L; Egg White IgE <0.10 kU/L; Peanut IgE <0.10 kU/L; Shrimp IgE <0.10 kU/L; Soybean IgE <0.10 kU/L
== END | disposition home or self-care (01) ==
LOC: LABWHC1 13:26
PROVIDERS: ATTEND Allergy & Immunology
DX: J45.40 Moderate persistent asthma, uncomplicated (principal); T78.40XA Allergy, unspecified, initial encounter
CPT/HCPCS: 36415; 71046; 83520; 86003

== ENCOUNTER → 2022-12-17 | Outpatient (CLI) | payer MEDICARE ==
--- NOTE | 2022-12-18 09:48 | MM ---
Reason for Exam: Screening (asymptomatic). Last mammogram was performed 2 year(s) and 6 month(s) ago. Patient History: Menarche at age 14. First Full-Term at age 36. Late child-bearing (after 30). Hysterectomy at age 40. Postmenopausal. Other cancer. 2010, Benign Excisional Biopsy on the left side. Paternal aunt had breast cancer. Risk Values: Cielo 5 year model risk: 2.6%. NCI Lifetime model risk: 6.8%. Prior Study Comparison: 12/28/2017 Screening Mammogram, Unknown. 05/02/2019 Bilateral Screening Mammogram, [facility]. 06/13/2020 Bilateral Screening Mammogram, [facility]. Tissue Density: The breast tissue is heterogeneously dense. This may lower the sensitivity of mammography. Findings: Analyzed By CAD. There is no suspicious group of microcalcifications or new suspicious mass in either breast. Benign calcifications within both breasts. Stable chronic nodularity within both breasts. Overall Assessment: Benign, BI-RAD 2 Management: Screening Mammogram of both breasts in 1 year. A clinical breast exam by your physician is recommended on an annual basis and results should be correlated with mammographic findings. Note on Cielo scores and lifetime risk: 1. A Cielo score greater than 3% is considered moderate risk. If this is the case, consider specialist referral to assess eligibility for a risk reducing agent. If overall lifetime risk for the development of breast cancer is 20% or higher, the patient may qualify for future screening with alternating mammogram and breast MRI. Electronically signed and approved by: John Bo D.O.
== END | disposition home or self-care (01) ==
LOC: RADMAMWWP 13:36
PROVIDERS: ATTEND Family Medicine
DX: Z12.31 Encounter for screening mammogram for malignant neoplasm of breast (principal); Z78.0 Asymptomatic menopausal state; Z80.3 Family history of malignant neoplasm of breast
CPT/HCPCS: 77063; 77067

== ENCOUNTER → 2023-04-01 | Outpatient (CLI) | payer MEDICARE ==
--- NOTE | 2023-04-01 11:31 | FL ---
EXAMINATION TYPE: FL barium swallow DATE OF EXAM: 04/01/2023 11:25 AM COMPARISON: Chest radiograph from 04/07/2022 CLINICAL INDICATION:Female, 72 years old with history of R13.10 DYSPHAGIA; PHH, TECHNIQUE: The procedure was explained and patient history elicited. All patient questions were ans wered prior to start of procedure. Multiple spot fluoroscopic images of the esophagus were obtained a fter the oral ingestion of effervescent crystals and liquid barium as the contrast agent. Fluoroscopic time: 59 seconds Fluoroscopic images: None Radiographs taken: 79 DAP: 782.35 mGym2 FINDINGS: The esophagus demonstrates normal primary and secondary peristalsis. Few tertiary contractions are vi sualized. There is delayed transit of contrast through the esophagus and required subsequent dry swal lows to clear. The esophageal mucosa is smooth without evidence of focal stricture, ulceration, or ab normal outpouching. No gastroesophageal reflux disease was identified. IMPRESSION: Esophageal dysmotility with delayed transit of barium through the esophagus.
== END | disposition home or self-care (01) ==
LOC: RADUSWWP 10:11
PROVIDERS: ATTEND Family Medicine
DX: K22.4 Dyskinesia of esophagus (principal); R13.10 Dysphagia, unspecified
CPT/HCPCS: 74220

== ENCOUNTER → 2023-07-27 | Outpatient (CLI) | payer MEDICARE ==
--- NOTE | 2023-07-27 13:50 | CT ---
EXAMINATION TYPE: CT cervical spine wo con DATE OF EXAM: 07/27/2023 COMPARISON: None HISTORY: SEVERE NECK PAIN CT DLP: 235.0 mGycm Automated exposure control for dose reduction was used. TECHNIQUE: CT scan of the cervical spine is obtained without contrast, axial images are obtained, sa gittal and coronal reformatted images are also reviewed. FINDINGS: The craniovertebral junction relationship and prevertebral soft tissues are normal. The cervical vertebral segments are normal in height and is no fracture. There is a slight anterolist hesis of C4 on C5. There is severe degenerative disease at the C 5/6 level where there is severe disc space narrowing, hypertrophic spurring and discogenic endplate changes. There is moderate degenerati ve disease at the C6-7 level where there is moderate disc space narrowing and spondylosis. The disc s paces from C2 through C5 are normal in height. There is mild loss of the normal cervical lordosis. There is moderate facet arthropathy greatest in the upper cervical spine at the C3-3, C3-4 and C4-5 l evels. There is severe degeneration of facets at the C5-6 level. There is mild 5% bony encroachment on the cervical canal at C5-6. There is multilevel bony neural for aminal encroachment bilaterally as follows; severe at the C3-4 level on the right, severe at the C4-5 level on the left, severe at the C5-6 level on the right, mild at the C6-7 level on the right and se scar at the C6-7 level on the left. IMPRESSION: 1. Severe degenerative disc disease at C5-6 and moderate degenerative disease at C6-7. 2. Multilevel facet arthropathy. 3. Multilevel bony neural foraminal encroachment as described above.
== END | disposition home or self-care (01) ==
LOC: RADCTMAIN 12:53
PROVIDERS: ATTEND Orthopaedic Surgery
DX: M47.812 Spondylosis without myelopathy or radiculopathy, cervical region (principal); M50.322 Other cervical disc degeneration at C5-C6 level; M50.323 Other cervical disc degeneration at C6-C7 level
CPT/HCPCS: 72125